=== PATIENT | male | born 1965 | race Caucasian/White ===

== ENCOUNTER → 2017-02-14 | Outpatient (CLI) | payer MEDICAID ==
[~2017-02-14] MED LIST: CARB200T5 PO; CARB200T6 PO; GABA-338 PO; HYDR-4078 PO; HYDR25TA PO; IBUP200C5 PO; LISI40TA4 PO; OMEP20CA10 PO; SUCR1TAB PO; [UNRECOGNIZED DRUG - CODE] PO
--- NOTE | 2017-02-14 20:13 | ECHOF ---
DATE OF PROCEDURE 02/14/2017 This is a two-dimensional echo with spectral Doppler, color-flow and M-mode. It was obtained in a patient with chest pain. Left atrial dimension is normal. Left ventricular end-diastolic dimension is normal. Left ventricular wall thickness is normal. LV systolic function is normal with ejection fraction of 52%. Right atrium is normal. Right ventricle is normal. Aortic root dimension is normal. Mitral, aortic, tricuspid, pulmonary valves are morphologically normal with trace of mitral and trace of tricuspid regurgitation with mild pulmonary hypertension with estimated pulmonary artery systolic pressure of 39. There is no pericardial effusion. IMPRESSION 1. Normal LV systolic function with ejection fraction of 52%. 2. Trace of mitral regurgitation. 3. Trace of tricuspid regurgitation with mild pulmonary hypertension with estimated pulmonary artery systolic pressure of 39. MTDD
== END ==
LOC: IMA 09:06
PROVIDERS: ATTEND Internal Medicine Cardiovascular Disease
DX: I27.2 Other secondary pulmonary hypertension (principal); R07.2 Precordial pain; R42 Dizziness and giddiness
CPT/HCPCS: 93306